=== PATIENT | female | born 1955 | race Asian ===

== ENCOUNTER 2019-02-08 19:55 | Emergency (ER) | payer MEDICARE, MEDICAID ==
[~2019-02-08] VITALS: Ht 152.4 cm; Wt 61.2 kg
[2019-02-08 20:57] LABS: Basophils # (auto) 0.1 uL; Basophils % (auto) 1.5 % (0.0-2.0); Eosinophils # (auto) 0.2 uL; Eosinophils % (auto) 3.4 % (0.0-7.0); Hematocrit 33.8 % (36.0-46.0); Hemoglobin 11.5 g/dL (12.2-16.2); Lymphocytes # (auto) 1.7 uL; Lymphocytes % (auto) 35.1 % (10.0-50.0); Mean Corpuscular Hemoglobin 32.8 pg (28.0-32.0); Mean Corpuscular Hgb Conc. 33.9 g/dL (32.0-36.0); Mean Corpuscular Volume 96.7 fL (80.0-100.0); Monocytes # (auto) 0.4 uL; Monocytes % (auto) 8.7 % (0.0-12.0); Neutrophils # (auto) 2.5 uL; Neutrophils % (auto) 51.3 % (37.0-80.0); Nucleated Red Blood Cells % 0.1 %; Platelet Count (auto) 228 10^3/uL (140-450); Red Blood Cells 3.49 10^6/uL (4.0-5.20); Red Cell Distribution Width 14.2 % (11.8-14.3); White Blood Cell 4.9 10^3/uL (4.4-10.8)
[2019-02-08 21:10] LABS: Albumin 3.7 g/dL (3.4-5.0); Anion Gap 6 (5-15); Blood Urea Nitrogen 19 mg/dL (7-18); Carbon Dioxide 24 mmol/L (21-32); Chloride 106 mmol/L (98-107); Glucose 118 mg/dL (74-106); Potassium 4.1 mmol/L (3.5-5.1); Sodium 136 mmol/L (136-145)
[2019-02-08 21:16] LABS: Alanine Aminotransferase 22 U/L (13-56); Alkaline Phosphatase 50 U/L (45-117); Aspartate Aminotransferase 14 U/L (15-37); BUN/Creatinine Ratio 23.2; Bilirubin, Total 0.2 mg/dL (0.2-1.0); GFR African American 90 mL/min; GFR Non-African American 74 mL/min; Total Protein 6.8 g/dL (6.4-8.2)
[2019-02-08 21:20] LABS: INR 1.05 (0.9-1.15); Partial Thromboplastin Time 28.2 sec (23.64-32.05)
[2019-02-08 22:33] LABS: Urine Bacteria NONE SEEN /hpf (None Seen); Urine Blood Negative /uL (Negative); Urine Specific Gravity 1.009 (1.001-1.035); Urine WBC <1 /hpf (0 - 5)
[2019-02-08] MEDS ORDERED: IOHEXOL 350 MG/ML 100ML IJ ONE (23:14)
[2019-02-09] MEDS ORDERED: cefTRIAXone 1GM/50ML D5W 50 ML IV ONE
[2019-02-09] MEDS ORDERED: IPRATROPIUM BROM 0.5 MG/2.5ML INH SOL NEB ONE
[2019-02-09] MEDS ORDERED: ALBUTEROL SULF 2.5 MG/0.5ML(0.5%) NEB SOLN NEB ONE
[2019-02-09 00:28] VITALS: BP 123/64
== END 2019-02-09 00:59 | disposition home or self-care (01) ==
LOC: ER 19:57
DX: J18.9 Pneumonia, unspecified organism (principal); R07.89 Other chest pain; E11.9 Type 2 diabetes mellitus without complications; E07.9 Disorder of thyroid, unspecified
CPT/HCPCS: 36415; 71045; 71275; 80053; 81001; 82962; 83880; 84484; 85025; 85379; 85610; 85730; 93005; 94640; 96365; 99284; J0696; J7611; J7644; Q9967